=== PATIENT | female | born 1940 | race Caucasian/White ===

== ENCOUNTER 2017-01-21 03:34 | Emergency (ER) | payer MEDICARE, OTHER ==
[~2017-01-21] VITALS: Ht 157.5 cm; Wt 65.8 kg
[~2017-01-21 03:34] MED LIST: CA C1TAB92 PO; CEPH500C2 PO; CITA10SO6 PO; CITA20SO PO; COR6.25 PO; FERR-57 PO; FURO20TA4 PO; GLIP10TA11 PO; GLIP5TAB13 PO; HYDR-4100 PO; LEVE500T13 PO; LEVO125T8 PO; LEVO25TA58 PO; LISI5TAB PO; LORA2TAB PO; MAGN64TA11 PO; METO25TA6 PO; NIZSHAM TP; NPH,100V SUBCUT; OMEP20CA10 PO; PHEN100C4 PO; PHEN100O4 PO; QUET50TA13 PO; SER25 PO; SPIR25TA PO; SPIR25TA4 PO; TRAM50TA92 PO; TRAZ-123 PO; TRIA1KIT8 TP
[2017-01-21 03:42] VITALS: BP_SYST 98
[2017-01-21 05:54] LABS: BILIRUBIN,URINE NEGATIVE (NEGATIVE); BLOOD, URINE 1+ (NEGATIVE); CLARITY/URINE CLEAR (CLEAR); COLOR,URINE AMBER (YELLOW); GLUCOSE,URINE NEGATIVE (NEGATIVE); KETONES,URINE NEGATIVE (NEGATIVE); LEUKOCYTE ESTERASE ,URINE 1+ (NEGATIVE); NITRITE, URINE NEGATIVE (NEGATIVE); PROTEIN URINE NEGATIVE (NEGATIVE)
[2017-01-21 06:04] LABS: ANION GAP 9 (5-15); CALCIUM 8.4 mg/dL (8.4-11.0); CHLORIDE 106 mmol/L (98-107); CREATININE 0.93 mg/dL (0.55-1.30); GLUCOSE 190 mg/dL (70-99); POTASSIUM 3.9 mmol/L (3.5-5.1); SODIUM SERUM 138 mmol/L (136-145); UREA NITROGEN, BLOOD 16 mg/dL (8-21)
[2017-01-21 06:08] LABS: INR 1.3 (0.8-1.2)
[2017-01-21 06:09] LABS: ALANINE AMINOTRANSFERASE 26 U/L (12-78); ALBUMIN 2.7 g/dL (3.4-4.8); ASPARTATE AMINOTRANSFERASE 26 U/L (10-37); RBC,URINE 0-3 /HPF (0-3); TOTAL BILIRUBIN 0.6 mg/dL (0.0-1.0)
[2017-01-21 06:10] LABS: BACTERIA,URINE FEW /HPF (None Seen)
[2017-01-21 06:11] LABS: MUCUS,URINE 1+ /LPF (None Seen)
[2017-01-21] MEDS: BACITRACIN 1 GM OINT TP ONE (06:23)
[2017-01-21] MEDS: LIDOCAINE 1% 10 MG/ML, 20 ML MDV IJ ONE (06:23)
[2017-01-21 06:27] LABS: BASOPHILS # (AUTO) 0.1 K/uL (0.0-0.2); BASOPHILS % (AUTO) 0.8 % (0.0-2.0); EOSINOPHILS # (AUTO) 0.2 K/uL (0.0-0.4); EOSINOPHILS % (AUTO) 1.8 % (0.0-4.0); HEMATOCRIT 37.3 % (36-48); HEMOGLOBIN 12.6 g/dL (12.0-16.0); LYMPHOCYTES # (AUTO) 1.5 K/uL (1.0-5.5); LYMPHOCYTES % (AUTO) 16.6 % (20.5-51.5); MEAN CORPUSCULAR HEMOGLOBIN 34 pg (27-31); MEAN CORPUSCULAR HGB CONC 34 % (32-36); MEAN CORPUSCULAR VOLUME 99 fL (79.0-98.0); MONOCYTES # (AUTO) 0.8 K/uL (0.0-1.0); MONOCYTES % (AUTO) 9.4 % (1.7-9.3); NEUTROPHILS # (AUTO) 6.3 K/uL (1.8-7.7); NEUTROPHILS % (AUTO) 71.4 % (40.0-70.0); PLATELET COUNT (AUTO) 130 K/uL (130-430); RED BLOOD CELL COUNT(AUTO) 3.75 MIL/uL (4.2-6.2); WHITE BLOOD COUNT (AUTO) 8.9 K/uL (4.8-10.8)
[2017-01-21 08:28] VITALS: BP_SYST 105
== END 2017-01-21 08:28 | disposition home or self-care (01) ==
LOC: SED 03:34
DX: S01.01XA Laceration without foreign body of scalp, initial encounter (principal); E11.9 Type 2 diabetes mellitus without complications; I10 Essential (primary) hypertension; Z86.73 Personal history of transient ischemic attack (TIA), and cerebral infarction without residual deficits; Z79.4 Long term (current) use of insulin; Z79.899 Other long term (current) drug therapy; W01.10XA Fall on same level from slipping, tripping and stumbling with subsequent striking against unspecified object, initial encounter; Y93.89 Activity, other specified; Y92.091 Bathroom in other non-institutional residence as the place of occurrence of the external cause; Y99.8 Other external cause status
CPT/HCPCS: 36415; 70450-TC; 72125-TC; 80053; 81000-TC; 84484; 85025; 85610-TC; 85730-TC; 87086; 93005; 99285; J2001